=== PATIENT | male | born 1965 | race Caucasian/White ===

== ENCOUNTER 2016-09-05 14:32 | Emergency (ER) | payer BC ==
--- NOTE | ~2016-09-05 | CR181 ---
[facility] A Service of [facility] & [facility] RADIOLOGY TEXT RESULTS PATIENT: BYRON BEARDEN LOCATION: CFTX : 65 UNIT #: [id number] AGE: [address]: Lauren Alexandra SEX: M ORDER DR: [id number] [facility] [address] [place], [place] [address] [id number] E MR#: [id number] Acc #: [id number] NAME: BYRON BEARDEN : 1965 SEX: M STUDY DATE/TIME: 09/05/2016 13:40 UNIT: CFIL ROOM: STUDY DESCRIPTION: CR Lumbar Spine 2 or 3 Views Attending Physician: Lauren Alexandra P.A.-C. Ordering Physician: Lauren Alexandra P.A.-C. Primary Care Physician: No Primary Care Physician MEDICAL IMAGING REPORT This report is preliminary unless electronic signature is present EXAM Lumbar spine series 3 views 09/05/2016 COMPARISON None HISTORY Back pain since injury in December 2015 worse for the past 4 days. FINDINGS There is discogenic change with a slight reversal of upper lumbar lordosis but no evidence of acute fracture or other acute abnormality. Dictated by... Leopoldo Currie M.D. THIS IS AN ELECTRONICALLY VERIFIED REPORT Leopoldo Currie M.D. at 09/07/2016 9:42 AM [email or web address]/bon TD: 09/05/2016 16:25 JOB #: [id number] MEDICAL IMAGING REPORT Page 1 of 1 COPY
--- NOTE | ~2016-09-05 | CR243 ---
[facility] A Service of [facility] & [facility] RADIOLOGY TEXT RESULTS PATIENT: BYRON BEARDEN LOCATION: CFTX : 65 UNIT #: [id number] AGE: [address]: Lauren Alexandra SEX: M ORDER DR: [id number] [facility] [address] [place], [place] [address] [id number] E MR#: [id number] Acc #: [id number] NAME: BYRON BEARDEN : 1965 SEX: M STUDY DATE/TIME: 09/05/2016 13:40 UNIT: CFID ROOM: STUDY DESCRIPTION: CR Thoracic Spine 3 Views Attending Physician: Lauren Alexandra P.A.-C. Ordering Physician: Lauren Alexandra P.A.-C. Primary Care Physician: No Primary Care Physician MEDICAL IMAGING REPORT This report is preliminary unless electronic signature is present EXAM Thoracic spine series 09/05/2016 HISTORY Back pain since injury December 2015 with reinjury March 2016 with pain worsening last 4 days. AP and lateral views of the thoracic spine were obtained. FINDINGS The vertebral bodies appear normal. The alignment is normal. There are postoperative changes in the cervical spine. IMPRESSION Thoracic spine appears normal. There is a metal plate in the lower cervical spine from prior surgery. Dictated by... Vikash Mcdonald M.D. THIS IS AN ELECTRONICALLY VERIFIED REPORT Vikash Mcdonald M.D. at 09/06/2016 6:08 AM Duong TD: 09/05/2016 16:26 JOB #: [id number] MEDICAL IMAGING REPORT Page 1 of 1 COPY
--- NOTE | ~2016-09-05 | CR58 ---
[facility] A Service of [facility] & [facility] RADIOLOGY TEXT RESULTS PATIENT: BYRON BEARDEN LOCATION: CFTX : 65 UNIT #: [id number] AGE: [address]: Lauren Alexandra SEX: M ORDER DR: [id number] [facility] [address] [place], [place] [address] [id number] E MR#: [id number] Acc #: [id number] NAME: BYRON BEARDEN : 1965 SEX: M STUDY DATE/TIME: 09/05/2016 13:39 UNIT: [facility] ROOM: STUDY DESCRIPTION: CR Cervical Spine 2 or 3 Views Attending Physician: Lauren Alexandra P.A.-C. Ordering Physician: Lauren Alexandra P.A.-C. Primary Care Physician: No Primary Care Physician MEDICAL IMAGING REPORT This report is preliminary unless electronic signature is present EXAM Cervical spine 3 view series 09/05/2016 HISTORY Back pain worsening in the last 4 days. Previous cervical spine surgery. AP, lateral and odontoid views of the cervical spine were obtained. FINDINGS There is a metal plate attached anteriorly to C5, C6 and C7 with disc inserts at 5-6 and 6-7. The alignment is normal. There is no subluxation and the other disc spaces are normal. IMPRESSION Previous anterior fusion of C5, C6, and C7. No subluxation or acute injuries are identified. Dictated by... Vikash Mcdonald M.D. THIS IS AN ELECTRONICALLY VERIFIED REPORT Vikash Mcdonald M.D. at 09/06/2016 6:08 AM Duong TD: 09/05/2016 16:41 JOB #: [id number] MEDICAL IMAGING REPORT Page 1 of 1 COPY
[~2016-09-05 14:32] MED LIST: BACTRIM DS TABL1 TA1 PO; NO MEDICATIONS; PERCOCET 7.5/321 TAB PO
== END 2016-09-05 15:07 | disposition home or self-care (01) ==
LOC: CFTX 14:32
DX: G89.29 Other chronic pain (principal); M54.6 Pain in thoracic spine; M54.5 Low back pain; M54.2 Cervicalgia; R03.0 Elevated blood-pressure reading, without diagnosis of hypertension; Z98.890 Other specified postprocedural states; Z87.891 Personal history of nicotine dependence
CPT/HCPCS: 72040; 72072; 72100; 96372; 99284; J1885